=== PATIENT | female | born 2000 | race Caucasian/White ===

== ENCOUNTER 2022-03-07 10:16 | Emergency (ER) | payer BC, OTHER, SELFPAY ==
[~2022-03-07] VITALS: Ht 162.6 cm; Wt 97.0 kg
[2022-03-07 10:23] VITALS: BP 122/76
[2022-03-07 13:04] LABS: CLARITY URINE CLEAR (CLEAR); COLOR URINE YELLOW (YELLOW); KETONES URINE NEGATIVE (NEGATIVE); LEUKOCYTE ESTERASE URINE TRACE (NEGATIVE); NITRITE URINE NEGATIVE (NEGATIVE); OCCULT BLOOD URINE TRACE (NEGATIVE); PROTEIN URINE NEGATIVE (NEGATIVE); SPECIFIC GRAVITY URINE 1.021 (1.005-1.030); UROBILINOGEN URINE 0.2 E.U./dL (0.2-1.0)
[2022-03-07 13:25] LABS: BASOPHILS % 0.7 % (0.0-2.0); EOSINOPHILS % 0.9 % (0.0-5.0); HEMATOCRIT. 38.1 % (36.0-48.0); HEMOGLOBIN. 13.3 g/dL (12.0-16.0); LYMPHOCYTES % 37.5 % (20.0-50.0); MEAN CORPUSCULAR HEMOGLOBIN 30.6 pg (28.0-32.0); MEAN CORPUSCULAR VOLUME 87.5 fL (81.0-99.0); MEAN PLATELET VOLUME 7.6 fl (7.4-10.4); MONOCYTES % 5.5 % (2.0-8.0); NEUTROPHILS % 55.4 % (40.0-76.0); PLATELET 249 x1000/uL (130-400); RED BLOOD CELL COUNT 4.35 mill/uL (4.2-5.4); RED CELL DISTRIBUTION WIDTH 13.2 % (11.6-14.6)
[2022-03-07 13:26] LABS: CHLORIDE 106 mEq/L (98-107)
[2022-03-07 13:46] LABS: B-HCG QUANTITATIVE 14405 mIU/mL (<3)
[2022-03-07] MEDS ORDERED: CEPH500C2 MT (16:00)
[2022-03-10 08:07] LABS: NEISSERIA GONORRHOEAE NAA Negative (Negative)
== END 2022-03-07 15:02 | disposition home or self-care (01) ==
LOC: ER 11:04
DX: O20.8 Other hemorrhage in early pregnancy (principal); O26.891 Other specified pregnancy related conditions, first trimester; L50.9 Urticaria, unspecified; Z3A.01 Less than 8 weeks gestation of pregnancy
CPT/HCPCS: 36415; 76801; 76817; 80053; 81003; 81025; 84702; 85025; 86850; 86900; 86901; 87210; 87491; 87591; 99284; Z7610

== ENCOUNTER 2022-06-11 17:51 | Emergency (ER) | payer BC ==
[~2022-06-11] VITALS: Ht 162.6 cm; Wt 109.0 kg
[~2022-06-11 17:51] MED LIST: CEPH500C2 MT
[2022-06-11 20:04] LABS: BASOPHILS % 0.3 % (0.0-2.0); EOSINOPHILS % 0.9 % (0.0-5.0); HEMATOCRIT. 35.7 % (36.0-48.0); HEMOGLOBIN. 12.4 g/dL (12.0-16.0); LYMPHOCYTES % 29.9 % (20.0-50.0); MEAN CORPUSCULAR HEMOGLOBIN 29.8 pg (28.0-32.0); MEAN CORPUSCULAR VOLUME 85.9 fL (81.0-99.0); MEAN PLATELET VOLUME 7.5 fl (7.4-10.4); MONOCYTES % 4.1 % (2.0-8.0); NEUTROPHILS % 64.8 % (40.0-76.0); PLATELET 283 x1000/uL (130-400); RED BLOOD CELL COUNT 4.16 mill/uL (4.2-5.4); RED CELL DISTRIBUTION WIDTH 13.7 % (11.6-14.6)
[2022-06-11 20:10] LABS: CHLORIDE 106 mEq/L (98-107)
[2022-06-11 20:35] LABS: B-HCG QUANTITATIVE 24409 mIU/mL (<3)
[2022-06-11 21:26] VITALS: BP 146/73
[2022-06-11 22:56] LABS: CLARITY URINE CLOUDY (CLEAR); COLOR URINE YELLOW (YELLOW); KETONES URINE NEGATIVE (NEGATIVE); LEUKOCYTE ESTERASE URINE 2+ (NEGATIVE); NITRITE URINE NEGATIVE (NEGATIVE); OCCULT BLOOD URINE NEGATIVE (NEGATIVE); PROTEIN URINE NEGATIVE (NEGATIVE); SPECIFIC GRAVITY URINE 1.013 (1.005-1.030); UROBILINOGEN URINE 0.2 E.U./dL (0.2-1.0)
[2022-06-11] MEDS ORDERED: CEPH500C2 MT (23:03)
== END 2022-06-11 23:42 | disposition home or self-care (01) ==
LOC: ER 17:51
DX: Z04.1 Encounter for examination and observation following transport accident (principal); O46.92 Antepartum hemorrhage, unspecified, second trimester; O23.42 Unspecified infection of urinary tract in pregnancy, second trimester; N39.0 Urinary tract infection, site not specified; O26.892 Other specified pregnancy related conditions, second trimester; R03.0 Elevated blood-pressure reading, without diagnosis of hypertension; O09.32 Supervision of pregnancy with insufficient antenatal care, second trimester; Z3A.20 20 weeks gestation of pregnancy
CPT/HCPCS: 36415; 76805; 80053; 81003; 84702; 85025; 86850; 86900; 99284